=== PATIENT | male | born 1960 | race American Indian/Alaskan Native ===

== ENCOUNTER 2019-07-02 10:19 | Inpatient (IN) | payer OTHER ==
[2019-07-02] MEDS ORDERED: DEXTROSE 50% IN WATER (25GM) 50 ML SYRINGE IV ONE ×2 (10:25→10:49)
--- NOTE | 2019-07-02 10:38 | Emergency Department Report ---
ED Neuro Deficit HPI - General Chief Complaint: Neuro Symptoms/Deficit Stated Complaint: WEAKNESS Time Seen by Provider: 07/02/19 10:22 Source: patient, EMS Mode of arrival: Stretcher Limitations: No Limitations - History of Present Illness Initial Comments: 58-year-old man states that he called his girlfriend at 9:30 secondary to acute difficulty in walking. He felt as if his right side was weak and somewhat numb. He had no trouble with his speech or facial weakness. He denied any other neurological symptoms. Apparently for the last 3 days he has been fasting. He was found to have a glucose of 57 on Accu-Chek testing when he arrived in the em ergency department. I ordered blood work prior to giving him half an amp of D50. I am not certain as to the timing of his phlebotomy at this point however. It appears that it was delayed. Patient was also found to have a glucose of slightly over 60 by EMS staff. He was given "oral glucose". -: Gradual Location: right arm, left leg Presenting Symptoms: Present: Weak/Paralyzed One Side History of same: No Place: home Severity: mild Quality: weak, numb Improves With: time Worsens With: none On Anticoagulants: No Context: gradual onset Associated Symptoms: denies other symptoms Treatments Prior to Arrival: none - Related Data Allergies/Adverse Reactions: Allergies Allergy/AdvReac Type Severity Reaction Status Date / Time No Known Allergies Allergy Unverified 07/02/19 10:48 ED Review of Systems ROS: Stated complaint: WEAKNESS Other details as noted in HPI Constitutional: denies: chills, fever Eyes: denies: eye pain, eye discharge, vision change ENT: denies: ear pain, throat pain Respiratory: denies: cough, shortness of breath, wheezing Cardiovascular: denies: chest pain, palpitations Endocrine: no symptoms reported Gastrointestinal: denies: abdominal pain, nausea, diarrhea Genitourinary: denies: urgency, dysuria Musculoskeletal: denies: back pain, joint swelling, arthralgia Skin: denies: rash, lesions Neurological: as per HPI, weakness, numbness. denies: headache Psychiatric: denies: anxiety, depression Hematological/Lymphatic: denies: easy bleeding, easy bruising ED Past Medical Hx - Past Medical History Previous Medical History?: No Additional medical history: Not taking any medication. - Social History Smoking Status: Unknown if ever smoked Substance Use Type: None ED Neuro Physical Exam - General Limitations: No Limitations General appearance: alert, in no apparent distress Suspected Stroke: Yes (possible) - Head Head exam: Present: atraumatic, normocephalic - Eye Eye exam: Present: normal appearance, PERRL, EOMI. Absent: scleral icterus - ENT ENT exam: Present: mucous membranes moist - Neck Neck exam: Present: normal inspection. Absent: tenderness, meningismus - Respiratory Respiratory exam: Present: normal lung sounds bilaterally. Absent: respiratory distress - Cardiovascular Cardiovascular Exam: Present: regular rate, normal rhythm. Absent: systolic murmur, diastolic murmur, rubs, gallop - GI/Abdominal GI/Abdominal exam: Present: soft, normal bowel sounds. Absent: distended, tenderness, guarding, rebound - Rectal Rectal exam: Present: deferred - Extremities Exam Extremities exam: Present: normal inspection - Back Exam Back exam: Present: normal inspection - Neurological Exam Neurological exam: Present: alert, oriented X3, CN II-XII intact, motor sensory deficit - NIHSS Assessment Interval: Baseline 1a. Level of Consciousness: alert/keenly responsive 1b. LOC Questions: answers both correctly 1c. LOC Commands: performs tasks correctly 2. Best Gaze: normal 3. Visual: no visual loss 4. Facial Palsy: normal symmetrical movement 5b. Motor Arm Right: drift 5a. Motor Arm Left: no drift 6a. Motor Leg Left: no drift 6b. Motor Leg Right: drift 7. Limb Ataxia: absent 8. Sensory: mild/moderate sensory loss 9. Best Language: no aphasia 10. Dysarthria: normal 11. Extinction/Inattention: no abnormality Total Score: 3 Stroke Severity: Minor Stroke - Psychiatric Psychiatric exam: Present: normal affect, normal mood - Skin Skin exam: Present: warm, dry, intact, normal color. Absent: rash ED Course Vital Signs 07/02/19 10:59 Temperature 97.8 F Pulse Rate 70 Respiratory 17 Rate Blood Pressure 147/93 O2 Sat by Pulse 100 Oximetry - Reevaluation(s) Reevaluation #1: Patient's neurological symptoms improved apparently with oral glucose given by paramedics. Case discussed with tele-neurologist. He stated the patient was not a candidate for TPA due to an NIHSS of 1 applied for subjective sensory symptoms. On serial exam the patient's drift did resolve. He stated that he is now back to normal on reassessment. 07/02/19 12:12 Reevaluation #2: On reassessment the patient hasn't an NIHSS of 0. 07/02/19 12:21 - Lab Data Result diagrams: 07/02/19 10:37 07/02/19 10:37 Lab Results 07/02/19 07/02/19 07/02/19 Range/Units 10:33 10:37 10:37 RBC 4.53 (3.65-5.03) M/mm3 Hgb 15.0 (11.8-15.2) gm/dl Hct 43.5 (35.5-45.6) % MCV 96 H (84-94) fl MCH 33 H (28-32) pg MCHC 35 H (32-34) % RDW 14.6 (13.2-15.2) % PT (12.2-14.9) Sec. INR (0.87-1.13) APTT (24.2-36.6) Sec. Thrombin Time (15.1-19.6) Sec. POC Glucose 57 L (70-105) Total Bilirubin 0.90 (0.1-1.2) mg/dL Direct Bilirubin 0.2 (0-0.2) mg/dL Indirect Bilirubin 0.7 mg/dL AST 26 (5-40) units/L ALT 13 (7-56) units/L Alkaline Phosphatase 55 (35-129) units/L Total Creatine Kinase 190 H (55-170) units/L CK-MB (CK-2) 4.3 H (0.0-4.0) ng/mL CK-MB (CK-2) Rel Index 2.2 (0-4) Troponin T < 0.010 (0.00-0.029) ng/mL Total Protein 7.1 (6.3-8.2) g/dL Albumin 4.0 (3.9-5) g/dL Albumin/Globulin Ratio 1.3 % 07/02/19 07/02/19 07/02/19 Range/Units 10:48 11:18 11:59 RBC (3.65-5.03) M/mm3 Hgb (11.8-15.2) gm/dl Hct (35.5-45.6) % MCV (84-94) fl MCH (28-32) pg MCHC (32-34) % RDW (13.2-15.2) % PT 14.3 (12.2-14.9) Sec. INR 1.10 (0.87-1.13) APTT 28.1 (24.2-36.6) Sec. Thrombin Time 17.6 (15.1-19.6) Sec. POC Glucose 66 L 118 H (70-105) Total Bilirubin (0.1-1.2) mg/dL Direct Bilirubin (0-0.2) mg/dL Indirect Bilirubin mg/dL AST (5-40) units/L ALT (7-56) units/L Alkaline Phosphatase (35-129) units/L Total Creatine Kinase (55-170) units/L CK-MB (CK-2) (0.0-4.0) ng/mL CK-MB (CK-2) Rel Index (0-4) Troponin T (0.00-0.029) ng/mL Total Protein (6.3-8.2) g/dL Albumin (3.9-5) g/dL Albumin/Globulin Ratio % Laboratory Results - last 24 hr 07/02/19 07/02/19 07/02/19 10:33 10:37 10:37 RBC 4.53 Hgb 15.0 Hct 43.5 MCV 96 H MCH 33 H MCHC 35 H RDW 14.6 PT INR APTT Thrombin Time POC Glucose 57 L Total Bilirubin 0.90 Direct Bilirubin 0.2 Indirect Bilirubin 0.7 AST 26 ALT 13 Alkaline Phosphatase 55 Total Creatine Kinase 190 H CK-MB (CK-2) 4.3 H CK-MB (CK-2) Rel Index 2.2 Troponin T < 0.010 Total Protein 7.1 Albumin 4.0 Albumin/Globulin Ratio 1.3 07/02/19 07/02/19 07/02/19 10:48 11:18 11:59 RBC Hgb Hct MCV MCH MCHC RDW PT 14.3 INR 1.10 APTT 28.1 Thrombin Time 17.6 POC Glucose 66 L 118 H Total Bilirubin Direct Bilirubin Indirect Bilirubin AST ALT Alkaline Phosphatase Total Creatine Kinase CK-MB (CK-2) CK-MB (CK-2) Rel Index Troponin T Total Protein Albumin Albumin/Globulin Ratio - EKG Data -: EKG Interpreted by Me EKG shows normal: sinus rhythm, axis, intervals, ST-T waves Rate: normal Interpretation: LVH (with associated repolarization abnormality) - Radiology Data Radiology results: report reviewed, image reviewed CT the head and chest x-ray showed no acute process - Thrombolytic Inclusion/Exclusion Thrombolytic Contraindications: Rapidily Improving s/s (NIHSS equals 0) Critical care attestation.: If time is entered above; I have spent that time in minutes in the direct care of this critically ill patient, excluding procedure time. ED Disposition Clinical Impression: Right sided numbness, TIA (transient ischemic attack) Disposition: OP ADMIT IP TO THIS HOSP Is pt being admited?: Yes Does the pt Need Aspirin: Yes Condition: Stable Time of Disposition: 12:30
--- NOTE | 2019-07-02 10:46 | Emergency Department Report ---
ED Neuro Deficit HPI - General Chief Complaint: Neuro Symptoms/Deficit Stated Complaint: WEAKNESS Time Seen by Provider: 07/02/19 10:22 Source: patient, EMS Mode of arrival: Stretcher Limitations: No Limitations - History of Present Illness Initial Comments: [facility] Date of Service: 07/02/2019 10:29:28 Impression: RO Acute Ischemic Stroke Comments: acute right sided numbness/weakness - NIHSS 1 for sensory changes. Concerning for right parietal vs subcortical infarct vs due to hypoglycemia. Recommend admission for stroke workup. Mechanism of Stroke: Possible Thromboembolic Possible Cardioembolic Small Vessel Disease Metrics: Last Known Well: 07/02/2019 08:30:00 [facility] Notification Time: 07/02/2019 10:28:45 Arrival Time: 07/02/2019 10:19:00 Stamp Time: 07/02/2019 10:29:28 Time First Login Attempt: 07/02/2019 10:35:51 Video Start Time: 07/02/2019 10:35:51 Symptoms: right sided weakness NIHSS Start Assessment Time: 07/02/2019 10:39:07 Patient is not a candidate for tPA. Patient was not deemed candidate for tPA thrombolytics because of Resolved symptoms. Video End Time: 07/02/2019 10:45:06 CT head showed no acute hemorrhage or acute core infarct. CT head was reviewed. Presentation is not suggestive of Large Vessel Occlusive disease. Advanced imaging was not obtained as the presentation was not suggestive of Large Vessel Occlusive Disease. ED Physician notified of diagnostic impression and management plan on 07/02/2019 10:45:06 Our recommendations are outlined below. Recommendations: Activate Stroke Protocol Admission/Order Set Stroke/Telemetry Floor Neuro Checks Bedside Swallow Eval DVT Prophylaxis IV Fluids, Normal Saline Head of Bed Below 30 Degrees Euglycemia and Avoid Hyperthermia (PRN Acetaminophen) start ASA if CT head is neg for hemorrhage. Recommended Scan: MRI Head MRA Head and Neck Without Contrast When Available - Stroke Protocol Lipid Panel to Be Obtained, if Not Done in the Last Three Months Therapies: Physical Therapy, Occupational Therapy, Speech Therapy Assessment When Applicable Dysphaghia Screen: Swallow Evaluation, Bedside NPO Until Swallow Evaluation DVT prophylaxis: Lovenox or LMW Heparin Disposition: Follow up with Teleneurology Follow up Sign Out: Discussed with Emergency Department Provider History of Present Illness: Patient is a 58 year old Male. Patient was brought by EMS for symptoms of right sided weakness 58 yo man with acute right sided numbness/weakness noted when he woke up this am. He was LSN at approx 0830 when he got up to use the bathroom. He takes no blood thinners. He has not eaten in 2 days and BG was 57. CT head showed no acute hemorrhage or acute core infarct. CT head was reviewed. Examination: 1A: Level of Consciousness - Alert; keenly responsive + 0 1B: Ask Month and Age - Both Questions Right + 0 1C: Blink Eyes & Squeeze Hands - Performs Both Tasks + 0 2: Test Horizontal Extraocular Movements - Normal + 0 3: Test Visual Richter - No Visual Loss + 0 4: Test Facial Palsy (Use Grimace if Obtunded) - Normal symmetry + 0 5A: Test Left Arm Motor Drift - No Drift for 10 Seconds + 0 5B: Test Right Arm Motor Drift - No Drift for 10 Seconds + 0 6A: Test Left Leg Motor Drift - No Drift for 5 Seconds + 0 6B: Test Right Leg Motor Drift - No Drift for 5 Seconds + 0 7: Test Limb Ataxia (FNF/Heel-Hoang) - No Ataxia + 0 8: Test Sensation - Mild-Moderate Loss: Less Sharp/More Dull + 1 9: Test Language/Aphasia - Normal; No aphasia + 0 10: Test Dysarthria - Normal + 0 11: Test Extinction/Inattention - No abnormality + 0 NIHSS Score: 1 Patient was informed the Neurology Consult would happen via TeleHealth consult by way of interactive audio and video telecommunications and consented to receiving care in this manner. Due to the immediate potential for life-threatening deterioration due to underlying acute neurologic illness, I spent 35 minutes providing critical care. This time includes time for face to face visit via telemedicine, review of medical records, imaging studies and discussion of findings with providers, the patient and/or family. Dr Robert Khan [facility] Case [id number] ED Review of Systems ROS: Stated complaint: WEAKNESS Other details as noted in HPI ED Neuro Physical Exam - General Limitations: No Limitations Suspected Stroke: Yes - NIHSS Assessment Interval: Baseline 1a. Level of Consciousness: alert/keenly responsive 1b. LOC Questions: answers both correctly 1c. LOC Commands: performs tasks correctly 2. Best Gaze: normal 3. Visual: no visual loss 4. Facial Palsy: normal symmetrical movement 5b. Motor Arm Right: no drift 5a. Motor Arm Left: no drift 6a. Motor Leg Left: no drift 6b. Motor Leg Right: no drift 7. Limb Ataxia: absent 8. Sensory: mild/moderate sensory loss 9. Best Language: no aphasia 10. Dysarthria: normal 11. Extinction/Inattention: no abnormality Total Score: 1 Stroke Severity: Minor Stroke - Lab Data Lab Results 07/02/19 Range/Units 10:33 POC Glucose 57 L (70-105) Critical care attestation.: If time is entered above; I have spent that time in minutes in the direct care of this critically ill patient, excluding procedure time. ED Disposition Clinical Impression: Right sided numbness Disposition: [id number] OP ADMIT IP TO THIS HOSP Is pt being admited?: Yes Condition: Stable
--- NOTE | 2019-07-02 10:54 | Cat Scan Report ---
CT head/brain wo con INDICATION: Stroke symptoms. TECHNIQUE: Routine CT head without contrast. All CT scans at this location are performed using CT dos e reduction for ALARA by means of automated exposure control. COMPARISON: None. FINDINGS: BRAIN / INTRACRANIAL CONTENTS: No acute hemorrhage, mass effect, midline shift, or hydrocephalus. No appreciable acute large territorial or lacunar infarct. ORBITS: No significant abnormality of visualized orbits. SINUSES / MASTOIDS: No significant abnormality of visualized sinuses and mastoid air cells. ADDITIONAL FINDINGS: None. IMPRESSION: No acute intracranial abnormality. Signer Name: Bobby Aldana MD Signed: 07/02/2019 10:50 AM Workstation Name: [id number]
[2019-07-02 10:57] LABS: Hematocrit 43.5 % (35.5-45.6); Mean Corpuscular HGB Conc 35 % (32-34); Mean Corpuscular Volume 96 fl (84-94); Red Blood Count 4.53 M/mm3 (3.65-5.03); Red Cell Distribution Width 14.6 % (13.2-15.2)
[2019-07-02 11:18] LABS: Creatine Kinase MB 4.3 ng/mL (0.0-4.0)
[2019-07-02 11:19] LABS: Alanine Aminotransferase 13 units/L (7-56); Bilirubin,Direct 0.2 mg/dL (0-0.2)
--- NOTE | 2019-07-02 11:23 | XRay Report ---
CHEST 1 VIEW INDICATION / CLINICAL INFORMATION: htn. Hypertension. COMPARISON: None available. FINDINGS: SUPPORT DEVICES: None. HEART / MEDIASTINUM: No significant abnormality. LUNGS / PLEURA: No significant pulmonary or pleural abnormality. No pneumothorax. ADDITIONAL FINDINGS: No significant additional findings. IMPRESSION: 1. No acute findings. Signer Name: Robert Patel MD Signed: 07/02/2019 11:19 AM Workstation Name: [id number]
[2019-07-02 11:37] LABS: INR 1.1 (0.87-1.13)
[2019-07-02 11:38] LABS: Partial Thromboplastin Time 28.1 Sec. (24.2-36.6); Thrombin Time 17.6 Sec. (15.1-19.6)
[2019-07-02] MEDS ORDERED: ASPIRIN 325 MG TAB PO ONE ×2 (12:31→12:35)
[2019-07-02 12:36] LABS: BUN/Creatinine Ratio 20; Blood Urea Nitrogen 24 mg/dL (9-20); Calcium 9.3 mg/dL (8.4-10.2); Hemolysis Index 53
[2019-07-02] MEDS ORDERED: ASPIRIN 325 MG TAB ONE (13:06)
[2019-07-02 13:19] LABS: Basophils % (Manual) 0 % (0.0-1.8); Total Cells Counted 100
[2019-07-02 13:20] LABS: RBC Morphology Normal
[2019-07-02 13:21] LABS: Platelet Count 214 K/mm3 (140-440); Platelet Estimate Consistent w Auto
[2019-07-02 16:31] LABS: Bacteria,Urine 1+ /HPF (Negative); Bilirubin,Urine NEG (Negative); Blood,Urine SM (Negative); Color,Urine Yellow (Yellow); Mucus,Urine 1+ /HPF; Protein,Urine <15 mg/dL mg/dL (Negative); Urobilinogen,Urine < 2.0 mg/dL (<2.0)
[2019-07-02 16:37] LABS: Amphetamine Screen,Urine PRESUMPTIVE NEGATIVE; Benzodiazepines Screen,Urine PRESUMPTIVE NEGATIVE; Methadone Screen,Urine PRESUMPTIVE NEGATIVE; Opiate Screen,Urine PRESUMPTIVE NEGATIVE
--- NOTE | 2019-07-02 16:48 | History and Physical Report ---
History of Present Illness Date of examination: 07/02/19 Date of admission: 07/02/19 12:32 Chief complaint: Right sided weakness History of present illness: Patient is a 58-year-old man with a history of tobacco and alcohol dependency who presents to [facility] ED with acute onset of transient severe right arm and leg weakness that begun when he woke up this morning. His right arm was flaccid, he thought he has sleep on it and it was asleep. Then he got up to walk and leg gave away. His girlfriend called EMS at 9:30pm secondary to acute difficulty in walking. He felt as if his right side was weak and somewhat numb. He had no trouble with his speech or facial weakness. He denied any other neurological symptoms. Apparently for the last 3 days he has been fasting. He was found to have a glucose of 57 on Accu-Chek testing when he arrived in the emergency department. Patient's neurological symptoms improved apparently with oral glucose given by paramedics. Case discussed with tele-neurologist. He stated the patient was not a candidate for TPA due to an NIHSS of 1 applied for subjective sensory symptoms. On serial exam the patient's drift did resolve. H e stated that he is now back to normal on reassessment. 07/02/19 12:12 Reevaluation #2: NIHSS of 0. PMH: as hpi PSH: he denies SH: 1/3 ppd tob, 6pk beer/week, no illicit drugs FH: hypertension and DM ROS: Constitutional: denies: fever ENT: denies: throat or neck pain Respiratory: denies: cough, shortness of breath Cardiovascular: denies: chest pain Endocrine: denies unexplained weight loss or gain Gastrointestinal: denies: abdominal pain, nausea Genitourinary: denies: dysuria Rectal: denies no incontinence, no bleeding, no itching, no discharge Musculoskeletal: denies swelling, myaglia, +muscle weakness right hand Skin: denies: rash Neurological: denies: headache +right sided weakness Hematological/Lymphatic: denies: easy bleeding or easy bruising Allergic/Immunologic: no urticaria, no allergic rhinitis, no anaphylaxis Psych: denies sadness or hopelessness, SI/HI Medications and Allergies Allergies Allergy/AdvReac Type Severity Reaction Status Date / Time No Known Allergies Allergy Unverified 07/02/19 10:48 Exam - Physical Exam Narrative exam: Gen: WDWN, NAD, Awake, Alert, Orientated x 3 HEENT: NCAT, EOMI, PERRL, OP Clear Neck: supple, no adenopathy, no thyromegaly, no JVD CVS/Heart: RRR, normal S1S2, pulses present bilaterally Chest/Lungs: CTA B, Symmetrical chest expansion, good air entry bilaterally GI/Abdomen: soft, NTND, good bowel sounds, no guarding or rebound /Bladder: no suprapubic tenderness, no CVA or paraspinal tenderness Extermity/Skin: no c/c/e, no obvious rash MSK: FROM x 4 Neuro: CN 2-12 grossly intact, no new focal deficits Psych: calm - Constitutional Vitals: Temp Pulse Resp BP Pulse Ox 97.8 F 68 17 135/86 98 07/02/19 10:59 07/02/19 12:59 07/02/19 12:59 07/02/19 12:59 07/02/19 14:18 Results - Labs CBC & Chem 7: 07/02/19 10:37 07/02/19 10:37 Labs: Laboratory Last Values WBC 7.9 K/mm3 (4.5-11.0) 07/02/19 10:37 RBC 4.53 M/mm3 (3.65-5.03) 07/02/19 10:37 Hgb 15.0 gm/dl (11.8-15.2) 07/02/19 10:37 Hct 43.5 % (35.5-45.6) 07/02/19 10:37 MCV 96 fl (84-94) H 07/02/19 10:37 MCH 33 pg (28-32) H 07/02/19 10:37 MCHC 35 % (32-34) H 07/02/19 10:37 RDW 14.6 % (13.2-15.2) 07/02/19 10:37 Plt Count 214 K/mm3 (140-440) 07/02/19 10:37 Add Manual Diff Complete 07/02/19 10:37 Total Counted 100 07/02/19 10:37 Seg Neuts % (Manual) 61.0 % (40.0-70.0) 07/02/19 10:37 Band Neutrophils % 0 % 07/02/19 10:37 Lymphocytes % (Manual) 28.0 % (13.4-35.0) 07/02/19 10:37 Reactive Lymphs % (Man) 0 % 07/02/19 10:37 Monocytes % (Manual) 7.0 % (0.0-7.3) 07/02/19 10:37 Eosinophils % (Manual) 4.0 % (0.0-4.3) 07/02/19 10:37 Basophils % (Manual) 0 % (0.0-1.8) 07/02/19 10:37 Metamyelocytes % 0 % 07/02/19 10:37 Myelocytes % 0 % 07/02/19 10:37 Promyelocytes % 0 % 07/02/19 10:37 Blast Cells % 0 % 07/02/19 10:37 Nucleated RBC % Not Reportable 07/02/19 10:37 Seg Neutrophils # Man 0.0 K/mm3 (1.8-7.7) L 07/02/19 10:37 Band Neutrophils # 0.0 K/mm3 07/02/19 10:37 Lymphocytes # (Manual) 0.0 K/mm3 (1.2-5.4) L 07/02/19 10:37 Abs React Lymphs (Man) 0.0 K/mm3 07/02/19 10:37 Monocytes # (Manual) 0.0 K/mm3 (0.0-0.8) 07/02/19 10:37 Eosinophils # (Manual) 0.0 K/mm3 (0.0-0.4) 07/02/19 10:37 Basophils # (Manual) 0.0 K/mm3 (0.0-0.1) 07/02/19 10:37 Metamyelocytes # 0.0 K/mm3 07/02/19 10:37 Myelocytes # 0.0 K/mm3 07/02/19 10:37 Promyelocytes # 0.0 K/mm3 07/02/19 10:37 Blast Cells # 0.0 K/mm3 07/02/19 10:37 WBC Morphology Not Reportable 07/02/19 10:37 Hypersegmented Neuts Not Reportable 07/02/19 10:37 Hyposegmented Neuts Not Reportable 07/02/19 10:37 Hypogranular Neuts Not Reportable 07/02/19 10:37 Smudge Cells Not Reportable 07/02/19 10:37 Toxic Granulation Not Reportable 07/02/19 10:37 Toxic Vacuolation Not Reportable 07/02/19 10:37 Dohle Bodies Not Reportable 07/02/19 10:37 Pelger-Huet Anomaly Not Reportable 07/02/19 10:37 Shayan Rods Not Reportable 07/02/19 10:37 Platelet Estimate Consistent w auto 07/02/19 10:37 Clumped Platelets Not Reportable 07/02/19 10:37 Plt Clumps, EDTA Not Reportable 07/02/19 10:37 Large Platelets Not Reportable 07/02/19 10:37 Giant Platelets Not Reportable 07/02/19 10:37 Platelet Satelliting Not Reportable 07/02/19 10:37 Plt Morphology Comment Not Reportable 07/02/19 10:37 RBC Morphology Normal 07/02/19 10:37 Dimorphic RBCs Not Reportable 07/02/19 10:37 Polychromasia Not Reportable 07/02/19 10:37 Hypochromasia Not Reportable 07/02/19 10:37 Poikilocytosis Not Reportable 07/02/19 10:37 Anisocytosis Not Reportable 07/02/19 10:37 Microcytosis Not Reportable 07/02/19 10:37 Macrocytosis Not Reportable 07/02/19 10:37 Spherocytes Not Reportable 07/02/19 10:37 Pappenheimer Bodies Not Reportable 07/02/19 10:37 Sickle Cells Not Reportable 07/02/19 10:37 Target Cells Not Reportable 07/02/19 10:37 Tear Drop Cells Not Reportable 07/02/19 10:37 Ovalocytes Not Reportable 07/02/19 10:37 Helmet Cells Not Reportable 07/02/19 10:37 [place] Bodies Not Reportable 07/02/19 10:37 [place] Rings Not Reportable 07/02/19 10:37 Juan Cells Not Reportable 07/02/19 10:37 Bite Cells Not Reportable 07/02/19 10:37 Crenated Cell Not Reportable 07/02/19 10:37 Elliptocytes Not Reportable 07/02/19 10:37 Acanthocytes (Spur) Not Reportable 07/02/19 10:37 Rouleaux Not Reportable 07/02/19 10:37 Hemoglobin C Crystals Not Reportable 07/02/19 10:37 Schistocytes Not Reportable 07/02/19 10:37 Malaria parasites Not Reportable 07/02/19 10:37 Hao Bodies Not Reportable 07/02/19 10:37 Hem Pathologist Commnt No 07/02/19 10:37 PT 14.3 Sec. (12.2-14.9) 07/02/19 11:18 INR 1.10 (0.87-1.13) 07/02/19 11:18 APTT 28.1 Sec. (24.2-36.6) 07/02/19 11:18 Thrombin Time 17.6 Sec. (15.1-19.6) 07/02/19 11:18 Sodium 139 mmol/L (137-145) 07/02/19 10:37 Potassium 4.4 mmol/L (3.6-5.0) 07/02/19 10:37 Chloride 103.0 mmol/L (98-107) 07/02/19 10:37 Carbon Dioxide 17 mmol/L (22-30) L 07/02/19 10:37 Anion Gap 23 mmol/L 07/02/19 10:37 BUN 24 mg/dL (9-20) H 07/02/19 10:37 Creatinine 1.2 mg/dL (0.8-1.5) 07/02/19 10:37 Estimated GFR > 60 ml/min 07/02/19 10:37 BUN/Creatinine Ratio 20 % 07/02/19 10:37 Glucose 90 mg/dL (75-100) 07/02/19 10:37 POC Glucose 118 (70-105) H 07/02/19 11:59 Calcium 9.3 mg/dL (8.4-10.2) 07/02/19 10:37 Total Bilirubin 0.90 mg/dL (0.1-1.2) 07/02/19 10:37 Direct Bilirubin 0.2 mg/dL (0-0.2) 07/02/19 10:37 Indirect Bilirubin 0.7 mg/dL 07/02/19 10:37 AST 26 units/L (5-40) 07/02/19 10:37 ALT 13 units/L (7-56) 07/02/19 10:37 Alkaline Phosphatase 55 units/L (35-129) 07/02/19 10:37 Total Creatine Kinase 190 units/L (55-170) H 07/02/19 10:37 CK-MB (CK-2) 4.3 ng/mL (0.0-4.0) H 07/02/19 10:37 CK-MB (CK-2) Rel Index 2.2 (0-4) 07/02/19 10:37 Troponin T < 0.010 ng/mL (0.00-0.029) 07/02/19 10:37 Total Protein 7.1 g/dL (6.3-8.2) 07/02/19 10:37 Albumin 4.0 g/dL (3.9-5) 07/02/19 10:37 Albumin/Globulin Ratio 1.3 % 07/02/19 10:37 Urine Color Yellow (Yellow) 07/02/19 Unknown Urine Turbidity Clear (Clear) 07/02/19 Unknown Urine pH 5.0 (5.0-7.0) 07/02/19 Unknown Ur Specific Band[place] 1.024 (1.003-1.030) 07/02/19 Unknown Urine Protein <15 mg/dl mg/dL (Negative) 07/02/19 Unknown Urine Glucose (UA) 50 mg/dL (Negative) 07/02/19 Unknown Urine Ketones Tr mg/dL (Negative) 07/02/19 Unknown Urine Blood Sm (Negative) 07/02/19 Unknown Urine Nitrite Neg (Negative) 07/02/19 Unknown Urine Bilirubin Neg (Negative) 07/02/19 Unknown Urine Urobilinogen < 2.0 mg/dL (<2.0) 07/02/19 Unknown Ur Leukocyte Esterase Neg (Negative) 07/02/19 Unknown Urine WBC (Auto) 1.0 /HPF (0.0-6.0) 07/02/19 Unknown Urine RBC (Auto) 3.0 /HPF (0.0-6.0) 07/02/19 Unknown Urine Bacteria (Auto) 1+ /HPF (Negative) 07/02/19 Unknown Urine Mucus 1+ /HPF 07/02/19 Unknown Urine Opiates Screen Presumptive negative 07/02/19 Unknown Urine Methadone Screen Presumptive negative 07/02/19 Unknown Ur Barbiturates Screen Presumptive negative 07/02/19 Unknown Ur Phencyclidine Scrn Presumptive negative 07/02/19 Unknown Ur Amphetamines Screen Presumptive negative 07/02/19 Unknown U Benzodiazepines Scrn Presumptive negative 07/02/19 Unknown Assessment and Plan Assessment and plan: Patient is a 58-year-old man with a history of tobacco and alcohol dependency who presents to [facility] ED with acute onset of transient severe right arm and leg weakness that begun when he woke up this morning. His right arm was flaccid, he thought he has sleep on it and it was asleep. Then he got up to walk and leg gave away. His girlfriend called EMS at 9:30pm secondary to acute difficulty in walking. He felt as if his right side was weak and somewhat numb. He had no trouble with his speech or facial weakness. He denied any other neurological symptoms. Apparently for the last 3 days he has been fasting. He was found to have a glucose of 57 on Accu-Chek testing when he arrived in the emergency department. Patient's neurological symptoms improved apparently with oral glucose given by paramedics. Case discussed with tele-neurologist. He stated the patient was not a candidate for TPA due to an NIHSS of 1 applied for subjec tive sensory symptoms. On serial exam the patient's drift did resolve. He stated that he is now back to normal on reassessment. 07/02/19 12:12 Reevaluation #2: NIHSS of 0. * CT head: No acute findings * pCXR: no acute findings Right sided weakness with ambulatory dysfunction suspect TIA: obtain mri, consult PT, treat with asa/statin, use stoke protocol Hypoglycemia, not known to be DM, most likely related to Etoh and not eating food: accucheck q4hr, neurocheck q4hr Macrocytosis without anemia, etoh related: treat with B vitamin and folate Metabolic acidosis: treat with ivf, repeat bmp Tobacco dependency: treat with nicotine patch, prison classification counselor on stopping Alcholol dependency: prison classification counselor on stopping, use CIWA protocol, watch for withdrawals/confusion Dehydration: IVF DVT ppx: sq heparin full code
[2019-07-02 17:09] LABS: Cannabinoid Screen,Urine PRESUMPTIVE POSITIVE; Cocaine Screen,Urine PRESUMPTIVE POSITIVE
[2019-07-02] MEDS ORDERED: ACETAMINOPHEN 325 MG TAB PO PRN (17:42)
[2019-07-02] MEDS ORDERED: ONDANSETRON 4 MG/2 ML INJ IV PRN (17:42)
[2019-07-02] MEDS ORDERED: LORazepam 2 MG/ML VIAL IV PRN ×2 (17:44)
[2019-07-02] MEDS ORDERED: HALOPERIDOL LACTATE 5 MG/1 ML INJ IV PRN (17:44)
[2019-07-02] MEDS: NICOTINE 21 MG/24 HR PATCH TD SCH (18:03)
[2019-07-02] MEDS: FAMOTIDINE 10 MG TAB PO SCH (21:36)
[2019-07-03 04:47] LABS: Hematocrit 39.6 % (35.5-45.6); Hemoglobin 13.7 gm/dl (11.8-15.2); Mean Corpuscular HGB Conc 35 % (32-34); Mean Corpuscular Volume 97 fl (84-94); Platelet Count 235 K/mm3 (140-440); Red Blood Count 4.09 M/mm3 (3.65-5.03); Red Cell Distribution Width 14.3 % (13.2-15.2)
[2019-07-03 05:03] LABS: BUN/Creatinine Ratio 23; Blood Urea Nitrogen 27 mg/dL (9-20); Calcium 8.5 mg/dL (8.4-10.2); Chol/HDL Ratio 3.62 %; HDL Cholesterol 40 mg/dL (40-59); Hemolysis Index 8; LDL Cholesterol,Direct 91 mg/dL (50-130)
--- NOTE | 2019-07-03 11:04 | Vascular Lab Report ---
VL carotid duplex BILAT INDICATION / CLINICAL INFORMATION: stroke. COMPARISON: None available. FINDINGS: No significant plaque formation is demonstrated at either bifurcation. Velocity measurements and wave form analysis indicate less than 50% stenosis of each internal carotid artery, according to art march. Normal antegrade flow is demonstrated in both vertebral arteries. Incidentally noted is a solid but inhomogeneous and ill-defined nodule in the left thyroid, measuring over 3 cm in greatest diameter. IMPRESSION: 1. No significant stenosis. 2. Dominant left thyroid nodule. Consideration should be given to biopsy. Signer Name: Rafa Minor MD Signed: 07/03/2019 11:00 AM Workstation Name: [id number]
[2019-07-03] MEDS: FAMOTIDINE 10 MG TAB PO SCH ×2 (14:56→21:17)
[2019-07-03] MEDS: THIAMINE 100 MG TAB PO SCH (14:56)
[2019-07-03] MEDS: FOLIC ACID 1 MG TAB PO SCH (14:56)
[2019-07-03] MEDS: ASPIRIN 325 MG TAB PO SCH (14:56)
--- NOTE | 2019-07-03 14:56 | Magnetic Resonance Report ---
NONENHANCED MR SCAN OF THE BRAIN: INDICATION / CLINICAL INFORMATION: Weakness on the right arm and right leg TECHNIQUE: Multiplanar, multisequence MR images of the brain were noncontrast MRI brain normal brain MR obtained . COMPARISON: CT scan of the head from 07/02/2019 FINDINGS: BRAIN / INTRACRANIAL CONTENTS: Abnormal MRI scan; graft focal area of restrictive diffusion in the co rtex of the posterior left cingulate gyrus; this infarction is probably more than 8 hours old (increa sed FLAIR signal intensity) but less than 3 days old (low ADC values). No no evidence of hemorrhagic transformation seen in the gradient echo images. Brainstem is normal. 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 One of these lesions seen along the posterior limb of left in ternal capsule. Confluent patchy white matter hyperintensities seen above the atria of the lateral ve ntricles due to cerebral arteriosclerosis. CRANIOCERVICAL JUNCTION: No significant abnormality. VASCULAR FLOW-VOIDS: No significant abnormality. ORBITS: No significant abnormality of visualized orbits. SINUSES / MASTOIDS: No significant abnormality of visualized sinuses and mastoid air cells. ADDITIONAL FINDINGS: None. IMPRESSION: Focal subacute ischemia involving cortex of the posterior left cingulate gyrus Scattered the deep hemispheric white matter lesions due to microvascular faint angiopathy. Signer Name: Jennie Lebron MD Signed: 07/03/2019 2:52 PM Workstation Name: [id number]
[2019-07-03] MEDS: NICOTINE 21 MG/24 HR PATCH TD SCH (14:57)
--- NOTE | 2019-07-03 15:08 | Magnetic Resonance Report ---
MRA HEAD WITHOUT CONTRAST HISTORY: Stroke COMPARISON: None. TECHNIQUE: Routine MRA of the head is performed. 3-D/MIP reformats postprocessed. CONTRAST: None. FINDINGS: Intracranial vertebral arteries: No significant abnormality. Basilar artery: No significant abnormality. Posterior cerebral arteries: No significant abnormality. Intracranial internal carotid arteries: No significant abnormality. Anterior cerebral arteries: Left anterior cerebral artery supplies both A2 segments. Middle cerebral arteries: No significant abnormality. Variants and anomalies:None Additional findings: None. IMPRESSION: No significant abnormality. Signer Name: Jennie Lebron MD Signed: 07/03/2019 3:04 PM Workstation Name: [id number]
--- NOTE | 2019-07-03 15:41 | Progress Note ---
Assessment and Plan Assessment and plan: Patient is a 58-year-old man with a history of tobacco and alcohol dependency who presents to [facility] ED with acute onset of transient severe right arm and leg weakness that begun when he woke up this morning. His right arm was flaccid, he thought he has sleep on it and it was asleep. Then he got up to walk and leg gave away. His girlfriend called EMS at 9:30pm secondary to acute difficulty in walking. He felt as if his right side was weak and somewhat numb. He had no trouble with his speech or facial weakness. He denied any other neurological symptoms. Apparently for the last 3 days he has been fasting. He was found to have a glucose of 57 on Accu-Chek testing when he arrived in the emergency department. Patient's neurological symptoms improved apparently with oral glucose given by paramedics. Case discussed with tele-neurologist. He stated the patient was not a candidate for TPA due to an NIHSS of 1 applied for subjective sensory symptoms. On serial exam the patient's drift did resolve. He stated that he is now back to normal on reassessment. 07/02/19 12:12 Reevaluation #2: NIHSS of 0. * CT head: No acute findings * pCXR: no acute findings Acute CVA ruled in: consulted Neurology, treat with asa/statin, use stoke protocol Hypoglycemia, not known to be DM, most likely related to Etoh and not eating food: accucheck q4hr, neurocheck q4hr Macrocytosis without anemia, etoh related: treat with B vitamin and folate Metabolic acidosis: treat with ivf, repeat bmp Tobacco dependency: treat with nicotine patch, financial services counselor on stopping Alcholol dependency: financial services counselor on stopping, use CIWA protocol, watch for withdrawals/confusion Dehydration: IVF DVT ppx: sq heparin full code Disposition: continue inpatient for acute stroke, physicial therapy pending, ECHO still pending, consulted Neurology. History Interval history: Patient was seen and examined. Follow-up on current diagnosis CVA. Overnight uneventful as no events directly reported to me. Patient denies any chest pain, shortness breath, nausea/vomiting or severe headaches. Imaging, nursing note, chart, labs and old chart reviewed. Discussed with patient. Hospitalist Physical - Physical exam Narrative exam: Gen: WDWN, NAD, Awake, Alert, Orientated x 3 HEENT: NCAT, EOMI, PERRL, OP Clear Neck: supple, no adenopathy, no thyromegaly, no JVD CVS/Heart: RRR, normal S1S2, pulses present bilaterally Chest/Lungs: CTA B, Symmetrical chest expansion, good air entry bilaterally GI/Abdomen: soft, NTND, good bowel sounds, no guarding or rebound /Bladder: no suprapubic tenderness, no CVA or paraspinal tenderness Extermity/Skin: no c/c/e, no obvious rash MSK: FROM x 4 Neuro: CN 2-12 grossly intact, no new focal deficits Psych: calm - Constitutional Vitals: Temp Pulse Resp BP Pulse Ox 97.8 F 70 18 128/90 99 07/03/19 05:11 07/03/19 05:11 07/03/19 05:11 07/03/19 05:11 07/03/19 05:11 Results - Labs CBC & Chem 7: 07/03/19 04:05 07/03/19 04:05 Labs: Laboratory Last Values WBC 5.4 K/mm3 (4.5-11.0) 07/03/19 04:05 RBC 4.09 M/mm3 (3.65-5.03) 07/03/19 04:05 Hgb 13.7 gm/dl (11.8-15.2) 07/03/19 04:05 Hct 39.6 % (35.5-45.6) 07/03/19 04:05 MCV 97 fl (84-94) H 07/03/19 04:05 MCH 33 pg (28-32) H 07/03/19 04:05 MCHC 35 % (32-34) H 07/03/19 04:05 RDW 14.3 % (13.2-15.2) 07/03/19 04:05 Plt Count 235 K/mm3 (140-440) 07/03/19 04:05 Add Manual Diff Complete 07/02/19 10:37 Total Counted 100 07/02/19 10:37 Seg Neuts % (Manual) 61.0 % (40.0-70.0) 07/02/19 10:37 Band Neutrophils % 0 % 07/02/19 10:37 Lymphocytes % (Manual) 28.0 % (13.4-35.0) 07/02/19 10:37 Reactive Lymphs % (Man) 0 % 07/02/19 10:37 Monocytes % (Manual) 7.0 % (0.0-7.3) 07/02/19 10:37 Eosinophils % (Manual) 4.0 % (0.0-4.3) 07/02/19 10:37 Basophils % (Manual) 0 % (0.0-1.8) 07/02/19 10:37 Metamyelocytes % 0 % 07/02/19 10:37 Myelocytes % 0 % 07/02/19 10:37 Promyelocytes % 0 % 07/02/19 10:37 Blast Cells % 0 % 07/02/19 10:37 Nucleated RBC % Not Reportable 07/02/19 10:37 Seg Neutrophils # Man 0.0 K/mm3 (1.8-7.7) L 07/02/19 10:37 Band Neutrophils # 0.0 K/mm3 07/02/19 10:37 Lymphocytes # (Manual) 0.0 K/mm3 (1.2-5.4) L 07/02/19 10:37 Abs React Lymphs (Man) 0.0 K/mm3 07/02/19 10:37 Monocytes # (Manual) 0.0 K/mm3 (0.0-0.8) 07/02/19 10:37 Eosinophils # (Manual) 0.0 K/mm3 (0.0-0.4) 07/02/19 10:37 Basophils # (Manual) 0.0 K/mm3 (0.0-0.1) 07/02/19 10:37 Metamyelocytes # 0.0 K/mm3 07/02/19 10:37 Myelocytes # 0.0 K/mm3 07/02/19 10:37 Promyelocytes # 0.0 K/mm3 07/02/19 10:37 Blast Cells # 0.0 K/mm3 07/02/19 10:37 WBC Morphology Not Reportable 07/02/19 10:37 Hypersegmented Neuts Not Reportable 07/02/19 10:37 Hyposegmented Neuts Not Reportable 07/02/19 10:37 Hypogranular Neuts Not Reportable 07/02/19 10:37 Smudge Cells Not Reportable 07/02/19 10:37 Toxic Granulation Not Reportable 07/02/19 10:37 Toxic Vacuolation Not Reportable 07/02/19 10:37 Dohle Bodies Not Reportable 07/02/19 10:37 Pelger-Huet Anomaly Not Reportable 07/02/19 10:37 Shayan Rods Not Reportable 07/02/19 10:37 Platelet Estimate Consistent w auto 07/02/19 10:37 Clumped Platelets Not Reportable 07/02/19 10:37 Plt Clumps, EDTA Not Reportable 07/02/19 10:37 Large Platelets Not Reportable 07/02/19 10:37 Giant Platelets Not Reportable 07/02/19 10:37 Platelet Satelliting Not Reportable 07/02/19 10:37 Plt Morphology Comment Not Reportable 07/02/19 10:37 RBC Morphology Normal 07/02/19 10:37 Dimorphic RBCs Not Reportable 07/02/19 10:37 Polychromasia Not Reportable 07/02/19 10:37 Hypochromasia Not Reportable 07/02/19 10:37 Poikilocytosis Not Reportable 07/02/19 10:37 Anisocytosis Not Reportable 07/02/19 10:37 Microcytosis Not Reportable 07/02/19 10:37 Macrocytosis Not Reportable 07/02/19 10:37 Spherocytes Not Reportable 07/02/19 10:37 Pappenheimer Bodies Not Reportable 07/02/19 10:37 Sickle Cells Not Reportable 07/02/19 10:37 Target Cells Not Reportable 07/02/19 10:37 Tear Drop Cells Not Reportable 07/02/19 10:37 Ovalocytes Not Reportable 07/02/19 10:37 Helmet Cells Not Reportable 07/02/19 10:37 [place] Bodies Not Reportable 07/02/19 10:37 [place] Rings Not Reportable 07/02/19 10:37 Juan Cells Not Reportable 07/02/19 10:37 Bite Cells Not Reportable 07/02/19 10:37 Crenated Cell Not Reportable 07/02/19 10:37 Elliptocytes Not Reportable 07/02/19 10:37 Acanthocytes (Spur) Not Reportable 07/02/19 10:37 Rouleaux Not Reportable 07/02/19 10:37 Hemoglobin C Crystals Not Reportable 07/02/19 10:37 Schistocytes Not Reportable 07/02/19 10:37 Malaria parasites Not Reportable 07/02/19 10:37 Hao Bodies Not Reportable 07/02/19 10:37 Hem Pathologist Commnt No 07/02/19 10:37 PT 14.3 Sec. (12.2-14.9) 07/02/19 11:18 INR 1.10 (0.87-1.13) 07/02/19 11:18 APTT 28.1 Sec. (24.2-36.6) 07/02/19 11:18 Thrombin Time 17.6 Sec. (15.1-19.6) 07/02/19 11:18 Sodium 138 mmol/L (137-145) 07/03/19 04:05 Potassium 4.2 mmol/L (3.6-5.0) 07/03/19 04:05 Chloride 103.1 mmol/L (98-107) 07/03/19 04:05 Carbon Dioxide 22 mmol/L (22-30) 07/03/19 04:05 Anion Gap 17 mmol/L 07/03/19 04:05 BUN 27 mg/dL (9-20) H 07/03/19 04:05 Creatinine 1.2 mg/dL (0.8-1.5) 07/03/19 04:05 Estimated GFR > 60 ml/min 07/03/19 04:05 BUN/Creatinine Ratio 23 % 07/03/19 04:05 Glucose 105 mg/dL (75-100) H 07/03/19 04:05 POC Glucose 104 (70-105) 07/03/19 14:10 Calcium 8.5 mg/dL (8.4-10.2) 07/03/19 04:05 Total Bilirubin 0.90 mg/dL (0.1-1.2) 07/02/19 10:37 Direct Bilirubin 0.2 mg/dL (0-0.2) 07/02/19 10:37 Indirect Bilirubin 0.7 mg/dL 07/02/19 10:37 AST 26 units/L (5-40) 07/02/19 10:37 ALT 13 units/L (7-56) 07/02/19 10:37 Alkaline Phosphatase 55 units/L (35-129) 07/02/19 10:37 Total Creatine Kinase 190 units/L (55-170) H 07/02/19 10:37 CK-MB (CK-2) 4.3 ng/mL (0.0-4.0) H 07/02/19 10:37 CK-MB (CK-2) Rel Index 2.2 (0-4) 07/02/19 10:37 Troponin T < 0.010 ng/mL (0.00-0.029) 07/02/19 10:37 Total Protein 7.1 g/dL (6.3-8.2) 07/02/19 10:37 Albumin 4.0 g/dL (3.9-5) 07/02/19 10:37 Albumin/Globulin Ratio 1.3 % 07/02/19 10:37 Triglycerides 193 mg/dL (2-149) H 07/03/19 04:05 Cholesterol 145 mg/dL (50-199) 07/03/19 04:05 LDL Cholesterol Direct 91 mg/dL (50-130) 07/03/19 04:05 HDL Cholesterol 40 mg/dL (40-59) 07/03/19 04:05 Cholesterol/HDL Ratio 3.62 % 07/03/19 04:05 Urine Color Yellow (Yellow) 07/02/19 Unknown Urine Turbidity Clear (Clear) 07/02/19 Unknown Urine pH 5.0 (5.0-7.0) 07/02/19 Unknown Ur Specific [place] 1.024 (1.003-1.030) 07/02/19 Unknown Urine Protein <15 mg/dl mg/dL (Negative) 07/02/19 Unknown Urine Glucose (UA) 50 mg/dL (Negative) 07/02/19 Unknown Urine Ketones Tr mg/dL (Negative) 07/02/19 Unknown Urine Blood Sm (Negative) 07/02/19 Unknown Urine Nitrite Neg (Negative) 07/02/19 Unknown Urine Bilirubin Neg (Negative) 07/02/19 Unknown Urine Urobilinogen < 2.0 mg/dL (<2.0) 07/02/19 Unknown Ur Leukocyte Esterase Neg (Negative) 07/02/19 Unknown Urine WBC (Auto) 1.0 /HPF (0.0-6.0) 07/02/19 Unknown Urine RBC (Auto) 3.0 /HPF (0.0-6.0) 07/02/19 Unknown Urine Bacteria (Auto) 1+ /HPF (Negative) 07/02/19 Unknown Urine Mucus 1+ /HPF 07/02/19 Unknown Urine Opiates Screen Presumptive negative 07/02/19 Unknown Urine Methadone Screen Presumptive negative 07/02/19 Unknown Ur Barbiturates Screen Presumptive negative 07/02/19 Unknown Ur Phencyclidine Scrn Presumptive negative 07/02/19 Unknown Ur Amphetamines Screen Presumptive negative 07/02/19 Unknown U Benzodiazepines Scrn Presumptive negative 07/02/19 Unknown Urine Cocaine Screen Presumptive positive 07/02/19 Unknown U Marijuana (THC) Screen Presumptive positive 07/02/19 Unknown Drugs of Abuse Note Disclamer 07/02/19 Unknown Active Medications - Current Medications Current Medications: Generic Name Dose Route Start Last Admin Trade Name Freq PRN Reason Stop Dose Admin Acetaminophen 650 mg 07/02/19 17:42 Tylenol PO Q4H PRN Pain, Mild (1-3) Aspirin 325 mg 07/03/19 10:00 07/03/19 14:56 Aspirin PO 325 mg QDAY CLIFFORD Administration Atorvastatin Calcium 40 mg 07/02/19 22:00 07/02/19 21:36 Lipitor PO 40 mg QHS CLIFFORD Administration Famotidine 10 mg 07/02/19 22:00 07/03/19 14:56 Pepcid PO 10 mg BID CLIFFORD Administration Folic Acid 1 mg 07/03/19 10:00 07/03/19 14:56 Folvite PO 1 mg QDAY CLIFFORD Administration Haloperidol Lactate 5 mg 07/02/19 17:44 Haldol IV Q1H PRN Unrespon. to mult. doses BZD's Heparin Sodium (Porcine) 5,000 unit 07/03/19 22:00 Heparin SUB-Q Q12HR [facility] Lorazepam 2 mg 07/02/19 17:44 Ativan IV Q1H PRN CIWA-Ar 8-15 Lorazepam 4 mg 07/02/19 17:44 Ativan IV Q1H PRN CIWA-Ar 16-25 Nicotine 21 mg 07/02/19 18:00 07/03/19 14:57 Habitrol TD 21 mg QDAY CLIFFORD Administration Ondansetron HCl 4 mg 07/02/19 17:42 Zofran IV Q8H PRN Nausea And Vomiting Sodium Chloride 10 ml 07/02/19 17:42 Sodium Chloride Flush Syringe 10 Ml IV 07/05/19 23:59 PRN PRN LINE FLUSH Thiamine HCl 100 mg 07/03/19 10:00 07/03/19 14:56 Vitamin B-1 PO 100 mg QDAY CLIFFORD Administration
[2019-07-03] MEDS: HEPARIN 5,000 UNIT/1 ML VIAL SUB-Q SCH (21:17)
--- NOTE | 2019-07-04 07:42 | Discharge Summary ---
Providers - Providers Date of Admission: 07/02/19 12:32 Attending physician: JAUN GREEN MD 07/02/19 17:42 Consult to Dietitian/Nutrition [CONS] Routine Physician Instructions: Reason For Exam: Reason for Consult: Nutrition Recommendations Reason for Consult: Poor oral intake Occupational Therapy Evaluate and Treat [CONS] Routine Comment: Reason For Exam: Neuro deficits Physical Therapy Evaluation and Treat [CONS] Routine Comment: Reason For Exam: Neuro deficits 07/03/19 15:30 Consult to Physician [CONS] Routine Comment: Consulting Provider: CAESAR SHETH Physician Instructions: Reason For Exam: acute cva Primary care physician: WALL [employer]OVERING INSTALLER Hospitalization Condition: Stable Pertinent studies: MRI brain Focal subacute ischemia involving cortex of the posterior left cingulate gyrus Scattered the deep hemispheric white matter lesions due to microvascular faint angiopathy. MRA head; No significant abnormality. carotid doppler; 1. No significant stenosis. 2. Dominant left thyroid nodule. Consideration should be given to biopsy. echo; ef 40%, bubble study not done Hospital course: 58-year-old man with a history of tobacco and alcohol dependency who presents to [facility] ED with acute onset of transient severe right arm and leg weakness that begun when he woke up this morning. His right arm was flaccid, he thought he has sleep on it and it was asleep. Then he got up to walk and leg gave away. His girlfriend called EMS at 9:30pm secondary to acute difficulty in walking. He felt as if his right side was weak and somewhat numb. He had no trouble with his speech or facial weakness. He denied any other neurological symptoms. Apparently for the last 3 days he has been fasting. He was found to have a glucose of 57 on Accu-Chek testing when he arrived in the emergency department. Patient's neurological symptoms improved apparently with oral glucose given by paramedics. Case discussed with tele-neurologist. He stated the patient was not a candidate for TPA due to an NIHSS of 1 applied for subjective sensory symptoms. On serial exam the patient's drift did resolve. He stated that he is now back to normal on reassessment. 07/02/19 12:12 Reevaluation #2: NIHSS of 0. * CT head: No acute findings * pCXR: no acute findings Acute CVA ruled in: Medications optimized for secondary prevention, neurology input appreciated New onset systolic CHF, echo shows EF of 40%. Cardiology input appreciated, status post stress test which showed, Medications optimized for heart failure. Hypoglycemia was due to being n.p.o., now resolved. Macrocytosis without anemia, etoh related: treat with B vitamin and folate Etoh dependence and withdrawal/polysubstance abuse, including marijuana and cocaine - wa protocol, thiamine and folate -preventative health counseling performed for 17 minutes Metabolic acidosis: Was most likely due to dehydration, resolved with IV fluids Tobacco abuse/dependence Smoking cessation counseling performed for 10 minutes, nicotine patches when necessary Dehydration: IVF, resolved DVT ppx: sq heparin full code Disposition: DC-01 TO HOME OR SELFCARE Time spent for discharge: 35 minutes Core Measure Documentation - Palliative Care Palliative Care/ Comfort Measures: Not Applicable - Core Measures Any of the following diagnoses?: heart failure, stroke - Heart Failure Discharge Requirements DEOVN/ARB for LVSD if EF <40%: Yes Beta michael at discharge: Yes - Stroke Discharge Requirements Statin for LDL = or >70 mg/dl on DC: Yes Anticoag for atrial fib/atrial flutter: Not Applicable Antithrombotic for ischemic stroke: Yes Exam - Physical Exam Narrative exam: General.: Appears well, no distress, nontoxic HEENT: Moist mucous membranes, extraocular muscles intact, no lymphadenopathy Neck: supple Cardiac: S1-S2 heard Lungs: clear to auscultation bilaterally Abdomen: soft , nontender, nondistended, bowel sounds positive Extremities: no edema clubbing or cyanosis Skin: no rash or lesions Neurologic: Mild right-sided weakness Psych: calm, and cooperative - Constitutional Vitals: Temp Pulse Resp BP Pulse Ox 98.6 F 56 L 16 138/88 100 07/04/19 04:35 07/04/19 04:34 07/04/19 04:34 07/04/19 04:34 07/04/19 04:34 Plan Follow up with: PRIMARY CAREMD [Primary Care Provider] - 7 Days Prescriptions: AtorvaSTATin [Lipitor] 40 mg PO QHS #90 tablet Folic Acid [Folvite] 1 mg PO QDAY #30 tablet Nicotine [Habitrol] 21 mg TD QDAY #30 patch Aspirin EC [Halfprin EC] 81 mg PO QDAY #90 tablet. Metoprolol Xl [Metoprolol SUCCINATE ER TAB] 25 mg PO QDAY #90 tablet Thiamine [Vitamin B-1] 100 mg PO QDAY #30 tablet lisinopriL [Zestril TAB] 10 mg PO QDAY #90 tablet
--- NOTE | 2019-07-04 10:16 | Consultation ---
History of Present Illness Consult date: 07/04/19 Reason for Consult: right side numbness and weakness History of present illness: Patient is a 58-year-old man with a history of tobacco and alcohol dependency who presents to [facility] ED with acute onset of transient severe right arm and leg weakness that begun when he woke up 2/2 morning. His right arm was flaccid, he thought he has sleep on it and it was asleep. Then he got up to walk and leg gave away. His girlfriend called EMS at 9:30pm secondary to acute difficulty in walking. He felt as if his right side was weak and somewhat numb. He had no trouble with his speech or facial weakness. He denied any other neurological symptoms. Apparently for the last 3 days he has been fasting. He was found to have a glucose of 57 on Accu-Chek testing when he arrived in the emergency department. Patient's neurological symptoms improved apparently with oral glucose given by paramedics. Case discussed with tele-neurologist. He stated the patient was not a candidate for TPA due to an NIHSS of 1 applied for subjective sensory symptoms. On serial exam the patient's drift did resolve. He stated that he is now back to normal on reassessment. 07/02/19 12:12 Reevaluation #2: NIHSS of 0. pt. is with hx of HTN,HLP and recreational drug abuse in addition to smoking and drinking ,he is poorly compliant with his medications in hospital CT brain is remarkable for small vesseles disease , MRI brain is remarkable for left singulte gyrus infarct subacute,MRA is unremarkable Echo showed EF# 40-45% with TRand MR and left vent. dysfunction LDL# 91 UDS showed positive for THC and cocaine Past History Past Medical History: hypertension, hyperlipidemia Social history: smoking, alcohol abuse, other (THC and cocaine abuse) Medications and Allergies Allergies Allergy/AdvReac Type Severity Reaction Status Date / Time No Known Allergies Allergy Unverified 07/02/19 10:48 Active Meds: Active Medications Acetaminophen (Tylenol) 650 mg PO Q4H PRN PRN Reason: Pain, Mild (1-3) Aspirin (Aspirin) 325 mg PO QDAY [facility] Last Admin: 07/03/19 14:56 Dose: 325 mg Documented by: Atorvastatin Calcium (Lipitor) 40 mg PO QHS [facility] Last Admin: 07/03/19 21:17 Dose: 40 mg Documented by: Famotidine (Pepcid) 10 mg PO BID [facility] Last Admin: 07/03/19 21:17 Dose: 10 mg Documented by: Folic Acid (Folvite) 1 mg PO QDAY [facility] Last Admin: 07/03/19 14:56 Dose: 1 mg Documented by: Haloperidol Lactate (Haldol) 5 mg IV Q1H PRN PRN Reason: Unrespon. to mult. doses BZD's Heparin Sodium (Porcine) (Heparin) 5,000 unit SUB-Q Q12HR [facility] Last Admin: 07/03/19 21:17 Dose: 5,000 unit Documented by: Lorazepam (Ativan) 2 mg IV Q1H PRN PRN Reason: CIWA-Ar 8-15 Lorazepam (Ativan) 4 mg IV Q1H PRN PRN Reason: CIWA-Ar 16-25 Nicotine (Habitrol) 21 mg TD QDAY [facility] Last Admin: 07/03/19 14:57 Dose: 21 mg Documented by: Ondansetron HCl (Zofran) 4 mg IV Q8H PRN PRN Reason: Nausea And Vomiting Sodium Chloride (Sodium Chloride Flush Syringe 10 Ml) 10 ml IV PRN PRN PRN Reason: LINE FLUSH Stop: 07/05/19 23:59 Thiamine HCl (Vitamin B-1) 100 mg PO QDAY [facility] Last Admin: 07/03/19 14:56 Dose: 100 mg Documented by: Review of Systems All systems: negative (as above) Physical Examination - Vital Signs Vital Signs: Vital Signs Temp Pulse Resp BP Pulse Ox 97.8 F 70 17 147/93 100 07/02/19 10:59 07/02/19 10:59 07/02/19 10:59 07/02/19 10:59 07/02/19 10:59 - Constitutional General appearance: comfortable - EENT EENT: Present: PERRL, mucous membranes moist - Respiratory Respiratory: Present: chest non-tender, lungs clear, normal breath sounds - Cardiovascular Cardiovascular: Present: regular rate, normal S1, normal S2 Extremities: Present: no peripheral edema bilatateraly, no clubbing, cyanosis, no inflammation, no ischemia or petechiae - Gastrointestinal Gastrointestinal: Present: normoactive bowel sounds - Integumentary Integumentary: Present: normal - Neurologic Cranial nerve examination: PERRL, EOMI, V1/V2/V3 grossly intact, face symmetric, tongue midline, intact shoulder shrug Speech examination: intact Sensorimotor examination: intact Detailed motor examination: grossly full strength in Reflex and gait examination: intact Reflexes: 1+: ankle, bicep, knee, tricep - Level of Consciousness 1a. Level of Consciousness: alert/keenly responsive - LOC Questions 1b. LOC Questions: answers both correctly - LOC Command 1c. LOC Commands: performs tasks correctly - Best Gaze 2. Best Gaze: normal - Visual 3. Visual: no visual loss - Facial Palsy 4. Facial Palsy: normal symmetrical movement - Motor Arm 5a. Motor Arm Left: no drift 5b. Motor Arm Right: no drift - Motor Leg 6a. Motor Leg Left: no drift 6b. Motor Leg Right: no drift - Limb Ataxia 7. Limb Ataxia: absent - Sensory 8. Sensory: normal - Best Language 9. Best Language: no aphasia - Dysarthria 10. Dysarthria: normal - Extinction and Inattention 11. Extinction/Inattention: no abnormality - Scoring Total Score: 0 Stroke Severity: No Stroke Symptoms Results - Laboratory Findings CBC and BMP: 07/03/19 04:05 07/03/19 04:05 Abnormal Lab Findings: Abnormal Labs 07/02/19 07/02/19 07/02/19 10:33 10:37 10:37 MCV 96 H MCH 33 H MCHC 35 H Seg Neutrophils # Man 0.0 L Lymphocytes # (Manual) 0.0 L Carbon Dioxide 17 L BUN 24 H Glucose POC Glucose 57 L Total Creatine Kinase 190 H CK-MB (CK-2) 4.3 H Triglycerides 07/02/19 07/02/19 07/03/19 10:48 11:59 04:05 MCV MCH MCHC Seg Neutrophils # Man Lymphocytes # (Manual) Carbon Dioxide BUN 27 H Glucose 105 H POC Glucose 66 L 118 H Total Creatine Kinase CK-MB (CK-2) Triglycerides 193 H 07/03/19 07/03/19 04:05 22:06 MCV 97 H MCH 33 H MCHC 35 H Seg Neutrophils # Man Lymphocytes # (Manual) Carbon Dioxide BUN Glucose POC Glucose 165 H Total Creatine Kinase CK-MB (CK-2) Triglycerides Assessment and Plan 1- This is 58 ys old male presented on 07/02 with right side numbness and weakness resolved by time in ER with NIH #1 for right sensory def, MRI brain is remarkable for left cingulate gyrus infarct subacute,he is today with NIH #0 2- Hx of HTN and HLP with poor compliance with medications 3- Hx of smoking and alcohol intake 4- Recreational drug abuse ,THC and Cocaine. PLAN 1- ASA 81 mg daily 2- Lipitor 40 mg daily 3- BP control 4- Stop alcohol,and smoking 5- Stop recreational drug 6- Follow up with PCP will sign off finding is D/W pt. and he was counselled about side effect of smoking/d rinking/recreational drug intake pt. instructed to comply with medications on discharge.
[2019-07-04] MEDS: FAMOTIDINE 10 MG TAB PO SCH ×2 (10:40→22:29)
[2019-07-04] MEDS: THIAMINE 100 MG TAB PO SCH (10:41)
[2019-07-04] MEDS: FOLIC ACID 1 MG TAB PO SCH (10:41)
[2019-07-04] MEDS: NICOTINE 21 MG/24 HR PATCH TD SCH (10:41)
[2019-07-04] MEDS: ASPIRIN 325 MG TAB PO SCH (10:41)
[2019-07-04] MEDS: HEPARIN 5,000 UNIT/1 ML VIAL SUB-Q SCH ×2 (10:42→22:29)
--- NOTE | 2019-07-04 13:12 | Consultation ---
History of Present Illness Consult date: 07/04/19 Requesting physician: JAUN GREEN Consult reason: congestive heart failure History of present illness: Pt is a 58 y.o. male with hx of CVA, HTN, HLD, alcohol use, tobacco use, and polysubstance abuse. He is previously unknown to our practice. He presented with acute transient right-sided numbness and weakness. Head CT was negative; however, brain MRI indicated a subacute infarct. He was determined to not be a candidate for TPA per Neurology. Cardiology was consulted for ?HF. Pt underwent echo, which showed EF 40-45%. He denies any prior cardiac issues. Upon exam, his neurological symptoms have improved. Pt denies CP and SOB. No edema. Troponin negative. ECG showed NSR with LVH. No acute findings on CXR. Also of note, carotid Doppler showed no significant stenosis. Past History Past Medical History: hypertension, hyperlipidemia, stroke Social history: smoking, alcohol abuse, other (Tox screen positive for cocaine and THC) Medications and Allergies Allergies Allergy/AdvReac Type Severity Reaction Status Date / Time No Known Allergies Allergy Unverified 07/02/19 10:48 Active Meds: Active Medications Acetaminophen (Tylenol) 650 mg PO Q4H PRN PRN Reason: Pain, Mild (1-3) Aspirin (Aspirin) 325 mg PO QDAY [facility] Last Admin: 07/04/19 10:41 Dose: 325 mg Documented by: Atorvastatin Calcium (Lipitor) 40 mg PO QHS [facility] Last Admin: 07/03/19 21:17 Dose: 40 mg Documented by: Famotidine (Pepcid) 10 mg PO BID [facility] Last Admin: 07/04/19 10:40 Dose: 10 mg Documented by: Folic Acid (Folvite) 1 mg PO QDAY [facility] Last Admin: 07/04/19 10:41 Dose: 1 mg Documented by: Haloperidol Lactate (Haldol) 5 mg IV Q1H PRN PRN Reason: Unrespon. to mult. doses BZD's Heparin Sodium (Porcine) (Heparin) 5,000 unit SUB-Q Q12HR [facility] Last Admin: 07/04/19 10:42 Dose: 5,000 unit Documented by: Lorazepam (Ativan) 2 mg IV Q1H PRN PRN Reason: CIWA-Ar 8-15 Lorazepam (Ativan) 4 mg IV Q1H PRN PRN Reason: CIWA-Ar 16-25 Nicotine (Habitrol) 21 mg TD QDAY [facility] Last Admin: 07/04/19 10:41 Dose: 21 mg Documented by: Ondansetron HCl (Zofran) 4 mg IV Q8H PRN PRN Reason: Nausea And Vomiting Sodium Chloride (Sodium Chloride Flush Syringe 10 Ml) 10 ml IV PRN PRN PRN Reason: LINE FLUSH Stop: 07/05/19 23:59 Thiamine HCl (Vitamin B-1) 100 mg PO QDAY [facility] Last Admin: 07/04/19 10:41 Dose: 100 mg Documented by: Review of Systems Constitutional: no weight loss, no weight gain, no fever, no chills, no sweats, no fatigue Ears, nose, mouth and throat: no ear pain, no ear discharge, no nose pain, no nasal congestion, no nasal discharge, no sore throat Cardiovascular: no chest pain, no orthopnea, no palpitations, no edema, no syncope, no shortness of breath Respiratory: no cough, no shortness of breath Gastrointestinal: no abdominal pain, no nausea, no vomiting, no diarrhea, no constipation Genitourinary Male: dysuria Rectal: pain Musculoskeletal: muscle weakness (Right side weakness) Integumentary: no rash, no redness, no wounds, no lesions Neurological: weakness Endocrine: no cold intolerance, no heat intolerance Hematologic/Lymphatic: no easy bruising, no easy bleeding Allergic/Immunologic: no urticaria Physical Examination Last Vital Signs Temp 98.4 F 07/04/19 11:29 Pulse 77 07/04/19 11:29 Resp 18 07/04/19 11:29 BP 139/99 07/04/19 11:29 Pulse Ox 98 07/04/19 11:29 General appearance: no acute distress HEENT: Positive: PERRL, Normocephaly, Mucus Membranes Moist Neck: Positive: neck supple, trachea midline. Negative: JVD/HJR Cardiac: Positive: Reg Rate and Rhythm, S1/S2 Lungs: Positive: clear to auscultation, No Wheeze, Rales, Rhonchi Neuro: Positive: Grossly Intact, Cranial Nerve 2-12 Intact, Coordination Normal, Sensory Function Intact. Negative: Motor Function Intact Abdomen: Positive: Soft, Active Bowel Sounds. Negative: Tender, Distended Male genitourinary: Positive: normal Skin: Negative: Rash, Suspicious Lesions, Wound, Bruising Musculoskeletal: No Fluid Collection, No Pain Extremities: Present: normal, upper extr. pulses, lower extr. pulses. Absent: edema Results 07/03/19 04:05 07/03/19 04:05 - Imaging and Cardiology Echo: report reviewed EKG: report reviewed, image reviewed - EKG Interpretation EKG: sinus rhythm EKG shows: sinus rhythm (LVH) EKG interpretations - Telemetry EKG Rhythm: Sinus Rhythm - EKG Sinus rhythms and dysrhythmias: sinus rhythm Chamber hypertrophy or enlargement: left ventricular hypertro Assessment and Plan Echo reviewed - EF 40-45%. No current clinical evidence of acutely decompensated HF, no cardiac complaints. Continue ASA and statin therapy. Initiate Toprol XL. Plan for stress test in AM to r/o ischemic CMP. NPO after midnight. The patient has been seen in conjunction with Dr. Angel, who agrees with the assessment and plan of care. - Patient Problems (1) CVA (cerebral vascular accident) Current Visit: Yes Status: Acute Plan to address problem: Subacute per MRI. (2) History of CVA (cerebrovascular accident) Current Visit: Yes Status: Chronic (3) Cardiomyopathy Current Visit: Yes Status: Chronic (4) Hypertension Current Visit: Yes Status: Chronic (5) Hyperlipidemia Current Visit: Yes Status: Chronic (6) Alcohol use Current Visit: Yes Status: Chronic (7) Cocaine use Current Visit: Yes Status: Chronic (8) Tobacco use Current Visit: Yes Status: Chronic
--- NOTE | 2019-07-04 14:43 | Progress Note ---
Assessment and Plan Assessment and plan: 58-year-old man with a history of tobacco and alcohol dependency who presents to [facility] ED with acute onset of transient severe right arm and leg weakness that begun when he woke up this morning. His right arm was flaccid, he thought he has sleep on it and it was asleep. Then he got up to walk and leg gave away. His girlfriend called EMS at 9:30pm secondary to acute difficulty in walking. He felt as if his right side was weak and somewhat numb. He had no trouble with his speech or facial weakness. He denied any other neurological symptoms. Apparently for the last 3 days he has been fasting. He was found to have a glucose of 57 on Accu-Chek testing when he arrived in the emergency department. Patient's neurological symptoms improved apparently with oral glucose given by paramedics. Case discussed with tele-neurologist. He stated the patient was not a candidate for TPA due to an NIHSS of 1 applied for subjective sensory symptoms. On serial exam the patient's drift did resolve. He stated that he is now back to normal on reassessment. 07/02/19 12:12 Reevaluation #2: NIHSS of 0. * CT head: No acute findings * pCXR: no acute findings Acute CVA ruled in: Medications optimized for secondary prevention, neurology input appreciated New onset systolic CHF, echo shows EF of 40%. Cardiology input appreciated, plan for stress test tomorrow. Hypoglycemia was due to being n.p.o., now resolved. Macrocytosis without anemia, etoh related: treat with B vitamin and folate Etoh dependence and withdrawal/polysubstance abuse, including marijuana and cocaine - [facility] protocol, thiamine and folate -preventative health counseling performed for 17 minutes Metabolic acidosis: Was most likely due to dehydration, resolved with IV fluids Tobacco abuse/dependence Smoking cessation counseling performed for 10 minutes, nicotine patches when necessary Dehydration: IVF, resolved DVT ppx: sq heparin full code Disposition: continue inpatient for acute stroke, physicial therapy pending, ECHO still pending, consulted Neurology. History Interval history: Right-sided weakness is improved Review of systems Constitutional: No fevers, no malaise, no joint pains CVS: No chest pain, no orthopnea, no pedal edema GI: No abdominal pain, no diarrhea, no vomiting, no constipation Respiratory: , no wheezing, no coughing Hospitalist Physical - Physical exam Narrative exam: General.: Appears well, no distress, nontoxic HEENT: Moist mucous membranes, extraocular muscles intact, no lymphadenopathy Neck: supple Cardiac: S1-S2 heard Lungs: clear to auscultation bilaterally Abdomen: soft , nontender, nondistended, bowel sounds positive Extremities: no edema clubbing or cyanosis Skin: no rash or lesions Neurologic: Mild right-sided weakness Psych: calm, and cooperative - Constitutional Vitals: Temp Pulse Resp BP Pulse Ox 98.4 F 77 18 139/99 98 07/04/19 11:29 07/04/19 11:29 07/04/19 11:29 07/04/19 11:29 07/04/19 11:29 General appearance: Present: no acute distress Results - Labs CBC & Chem 7: 07/03/19 04:05 07/03/19 04:05 Labs: Laboratory Last Values WBC 5.4 K/mm3 (4.5-11.0) 07/03/19 04:05 RBC 4.09 M/mm3 (3.65-5.03) 07/03/19 04:05 Hgb 13.7 gm/dl (11.8-15.2) 07/03/19 04:05 Hct 39.6 % (35.5-45.6) 07/03/19 04:05 MCV 97 fl (84-94) H 07/03/19 04:05 MCH 33 pg (28-32) H 07/03/19 04:05 MCHC 35 % (32-34) H 07/03/19 04:05 RDW 14.3 % (13.2-15.2) 07/03/19 04:05 Plt Count 235 K/mm3 (140-440) 07/03/19 04:05 Add Manual Diff Complete 07/02/19 10:37 Total Counted 100 07/02/19 10:37 Seg Neuts % (Manual) 61.0 % (40.0-70.0) 07/02/19 10:37 Band Neutrophils % 0 % 07/02/19 10:37 Lymphocytes % (Manual) 28.0 % (13.4-35.0) 07/02/19 10:37 Reactive Lymphs % (Man) 0 % 07/02/19 10:37 Monocytes % (Manual) 7.0 % (0.0-7.3) 07/02/19 10:37 Eosinophils % (Manual) 4.0 % (0.0-4.3) 07/02/19 10:37 Basophils % (Manual) 0 % (0.0-1.8) 07/02/19 10:37 Metamyelocytes % 0 % 07/02/19 10:37 Myelocytes % 0 % 07/02/19 10:37 Promyelocytes % 0 % 07/02/19 10:37 Blast Cells % 0 % 07/02/19 10:37 Nucleated RBC % Not Reportable 07/02/19 10:37 Seg Neutrophils # Man 0.0 K/mm3 (1.8-7.7) L 07/02/19 10:37 Band Neutrophils # 0.0 K/mm3 07/02/19 10:37 Lymphocytes # (Manual) 0.0 K/mm3 (1.2-5.4) L 07/02/19 10:37 Abs React Lymphs (Man) 0.0 K/mm3 07/02/19 10:37 Monocytes # (Manual) 0.0 K/mm3 (0.0-0.8) 07/02/19 10:37 Eosinophils # (Manual) 0.0 K/mm3 (0.0-0.4) 07/02/19 10:37 Basophils # (Manual) 0.0 K/mm3 (0.0-0.1) 07/02/19 10:37 Metamyelocytes # 0.0 K/mm3 07/02/19 10:37 Myelocytes # 0.0 K/mm3 07/02/19 10:37 Promyelocytes # 0.0 K/mm3 07/02/19 10:37 Blast Cells # 0.0 K/mm3 07/02/19 10:37 WBC Morphology Not Reportable 07/02/19 10:37 Hypersegmented Neuts Not Reportable 07/02/19 10:37 Hyposegmented Neuts Not Reportable 07/02/19 10:37 Hypogranular Neuts Not Reportable 07/02/19 10:37 Smudge Cells Not Reportable 07/02/19 10:37 Toxic Granulation Not Reportable 07/02/19 10:37 Toxic Vacuolation Not Reportable 07/02/19 10:37 Dohle Bodies Not Reportable 07/02/19 10:37 Pelger-Huet Anomaly Not Reportable 07/02/19 10:37 Shayan Rods Not Reportable 07/02/19 10:37 Platelet Estimate Consistent w auto 07/02/19 10:37 Clumped Platelets Not Reportable 07/02/19 10:37 Plt Clumps, EDTA Not Reportable 07/02/19 10:37 Large Platelets Not Reportable 07/02/19 10:37 Giant Platelets Not Reportable 07/02/19 10:37 Platelet Satelliting Not Reportable 07/02/19 10:37 Plt Morphology Comment Not Reportable 07/02/19 10:37 RBC Morphology Normal 07/02/19 10:37 Dimorphic RBCs Not Reportable 07/02/19 10:37 Polychromasia Not Reportable 07/02/19 10:37 Hypochromasia Not Reportable 07/02/19 10:37 Poikilocytosis Not Reportable 07/02/19 10:37 Anisocytosis Not Reportable 07/02/19 10:37 Microcytosis Not Reportable 07/02/19 10:37 Macrocytosis Not Reportable 07/02/19 10:37 Spherocytes Not Reportable 07/02/19 10:37 Pappenheimer Bodies Not Reportable 07/02/19 10:37 Sickle Cells Not Reportable 07/02/19 10:37 Target Cells Not Reportable 07/02/19 10:37 Tear Drop Cells Not Reportable 07/02/19 10:37 Ovalocytes Not Reportable 07/02/19 10:37 Helmet Cells Not Reportable 07/02/19 10:37 [place] Bodies Not Reportable 07/02/19 10:37 Bison Rings Not Reportable 07/02/19 10:37 Juan Cells Not Reportable 07/02/19 10:37 Bite Cells Not Reportable 07/02/19 10:37 Crenated Cell Not Reportable 07/02/19 10:37 Elliptocytes Not Reportable 07/02/19 10:37 Acanthocytes (Spur) Not Reportable 07/02/19 10:37 Rouleaux Not Reportable 07/02/19 10:37 Hemoglobin C Crystals Not Reportable 07/02/19 10:37 Schistocytes Not Reportable 07/02/19 10:37 Malaria parasites Not Reportable 07/02/19 10:37 Hao Bodies Not Reportable 07/02/19 10:37 Hem Pathologist Commnt No 07/02/19 10:37 PT 14.3 Sec. (12.2-14.9) 07/02/19 11:18 INR 1.10 (0.87-1.13) 07/02/19 11:18 APTT 28.1 Sec. (24.2-36.6) 07/02/19 11:18 Thrombin Time 17.6 Sec. (15.1-19.6) 07/02/19 11:18 Sodium 138 mmol/L (137-145) 07/03/19 04:05 Potassium 4.2 mmol/L (3.6-5.0) 07/03/19 04:05 Chloride 103.1 mmol/L (98-107) 07/03/19 04:05 Carbon Dioxide 22 mmol/L (22-30) 07/03/19 04:05 Anion Gap 17 mmol/L 07/03/19 04:05 BUN 27 mg/dL (9-20) H 07/03/19 04:05 Creatinine 1.2 mg/dL (0.8-1.5) 07/03/19 04:05 Estimated GFR > 60 ml/min 07/03/19 04:05 BUN/Creatinine Ratio 23 % 07/03/19 04:05 Glucose 105 mg/dL (75-100) H 07/03/19 04:05 POC Glucose 165 (70-105) H 07/03/19 22:06 Calcium 8.5 mg/dL (8.4-10.2) 07/03/19 04:05 Total Bilirubin 0.90 mg/dL (0.1-1.2) 07/02/19 10:37 Direct Bilirubin 0.2 mg/dL (0-0.2) 07/02/19 10:37 Indirect Bilirubin 0.7 mg/dL 07/02/19 10:37 AST 26 units/L (5-40) 07/02/19 10:37 ALT 13 units/L (7-56) 07/02/19 10:37 Alkaline Phosphatase 55 units/L (35-129) 07/02/19 10:37 Total Creatine Kinase 190 units/L (55-170) H 07/02/19 10:37 CK-MB (CK-2) 4.3 ng/mL (0.0-4.0) H 07/02/19 10:37 CK-MB (CK-2) Rel Index 2.2 (0-4) 07/02/19 10:37 Troponin T < 0.010 ng/mL (0.00-0.029) 07/02/19 10:37 Total Protein 7.1 g/dL (6.3-8.2) 07/02/19 10:37 Albumin 4.0 g/dL (3.9-5) 07/02/19 10:37 Albumin/Globulin Ratio 1.3 % 07/02/19 10:37 Triglycerides 193 mg/dL (2-149) H 07/03/19 04:05 Cholesterol 145 mg/dL (50-199) 07/03/19 04:05 LDL Cholesterol Direct 91 mg/dL (50-130) 07/03/19 04:05 HDL Cholesterol 40 mg/dL (40-59) 07/03/19 04:05 Cholesterol/HDL Ratio 3.62 % 07/03/19 04:05 Urine Color Yellow (Yellow) 07/02/19 Unknown Urine Turbidity Clear (Clear) 07/02/19 Unknown Urine pH 5.0 (5.0-7.0) 07/02/19 Unknown Ur Specific [place] 1.024 (1.003-1.030) 07/02/19 Unknown Urine Protein <15 mg/dl mg/dL (Negative) 07/02/19 Unknown Urine Glucose (UA) 50 mg/dL (Negative) 07/02/19 Unknown Urine Ketones Tr mg/dL (Negative) 07/02/19 Unknown Urine Blood Sm (Negative) 07/02/19 Unknown Urine Nitrite Neg (Negative) 07/02/19 Unknown Urine Bilirubin Neg (Negative) 07/02/19 Unknown Urine Urobilinogen < 2.0 mg/dL (<2.0) 07/02/19 Unknown Ur Leukocyte Esterase Neg (Negative) 07/02/19 Unknown Urine WBC (Auto) 1.0 /HPF (0.0-6.0) 07/02/19 Unknown Urine RBC (Auto) 3.0 /HPF (0.0-6.0) 07/02/19 Unknown Urine Bacteria (Auto) 1+ /HPF (Negative) 07/02/19 Unknown Urine Mucus 1+ /HPF 07/02/19 Unknown Urine Opiates Screen Presumptive negative 07/02/19 Unknown Urine Methadone Screen Presumptive negative 07/02/19 Unknown Ur Barbiturates Screen Presumptive negative 07/02/19 Unknown Ur Phencyclidine Scrn Presumptive negative 07/02/19 Unknown Ur Amphetamines Screen Presumptive negative 07/02/19 Unknown U Benzodiazepines Scrn Presumptive negative 07/02/19 Unknown Urine Cocaine Screen Presumptive positive 07/02/19 Unknown U Marijuana (THC) Screen Presumptive positive 07/02/19 Unknown Drugs of Abuse Note Disclamer 07/02/19 Unknown Active Medications - Current Medications Current Medications: Generic Name Dose Route Start Last Admin Trade Name Freq PRN Reason Stop Dose Admin Acetaminophen 650 mg 07/02/19 17:42 Tylenol PO Q4H PRN Pain, Mild (1-3) Aspirin 325 mg 07/03/19 10:00 07/04/19 10:41 Aspirin PO 325 mg QDAY [facility] Administration Atorvastatin Calcium 40 mg 07/02/19 22:00 07/03/19 21:17 Lipitor PO 40 mg QHS [facility]ORD Administration Famotidine 10 mg 07/02/19 22:00 07/04/19 10:40 Pepcid PO 10 mg BID [facility] Administration Folic Acid 1 mg 07/03/19 10:00 07/04/19 10:41 Folvite PO 1 mg QDAY LCIFF[facility] Administration Haloperidol Lactate 5 mg 07/02/19 17:44 Haldol IV Q1H PRN Unrespon. to mult. doses BZD's Heparin Sodium (Porcine) 5,000 unit 07/03/19 22:00 07/04/19 10:42 Heparin SUB-Q 5,000 unit Q12HR [facility] Administration Lorazepam 2 mg 07/02/19 17:44 Ativan IV Q1H PRN CIWA-Ar 8-15 Lorazepam 4 mg 07/02/19 17:44 Ativan IV Q1H PRN CIWA-Ar 16-25 Metoprolol Succinate 25 mg 07/05/19 10:00 Metoprolol Xl PO QDAY [facility]ORD Nicotine 21 mg 07/02/19 18:00 07/04/19 10:41 Habitrol TD 21 mg QDAY [facility] Administration Ondansetron HCl 4 mg 07/02/19 17:42 Zofran IV Q8H PRN Nausea And Vomiting Sodium Chloride 10 ml 07/02/19 17:42 Sodium Chloride Flush Syringe 10 Ml IV 07/05/19 23:59 PRN PRN LINE FLUSH Thiamine HCl 100 mg 07/03/19 10:00 07/04/19 10:41 Vitamin B-1 PO 100 mg QDAY [facility] Administration Nutrition/Malnutrition Assess - Dietary Evaluation Nutrition/Malnutrition Findings: Nutrition Notes Start: 07/03/19 15:44 Freq: Status: Active Protocol: Document 07/04/19 09:35 AP (Rec: 07/04/19 09:45 AP [id number]) Co-Sign 07/04/19 09:35 LP Nutrition Notes Initial or Follow up Assessment Current Diagnosis Stroke Other Pertinent Diagnosis ETOH/TOBACCO DEPENDENCE Current Diet CARDIAC Labs/Tests BUN 27 TG 193 Pertinent Medications Pepcid Height 5 ft 7 in Weight 77.9 kg [place] Body Weight (kg) 67.27 BMI 26.9 Intake Prior to Admission Fair Weight change and time frame 8% in 2 months Weight Status Overweight Subjective/Other Information F/U for poor oral intakes. Pt consumed 100% of bfast tray, asked for double portions. Pt states losing 10-15 pounds in 1-2 months. No wasting noted. Burn Absent Trauma Absent GI Symptoms None Current % PO Good (75-100%) Minimum of two criteria No physical signs of malnutrition Interpretation of Weight Loss (severe) >5% in 1 month #1 Nutrition Diagnosis No nutrition diagnosis at this time Is patient on ventilator? No Is Patient Ambulatory and/or Out of Bed Yes REE-([facility]-ambulatory/OOB) [ 2018.419 [id number]] Calculation Used for Recommendations [facility] Additional Notes PRO needs: 62-77g/day (0.8-1g/ kg) Fluid: 1ml/kcal or per MD Nutrition Intervention Change Diet Order: Continue current Goal #1 Pt meet >80% kcal/PRO needs via PO intakes Anticipated Discharge Needs: Cardiac diet Revisit per MD consult or patient Sign Off request: Additional Comments F/U for PO intakes, need for stroke diet ed
[2019-07-04] MEDS: METOPROLOL SUCCINATE XL 25 MG TAB PO SCH (19:19)
[2019-07-05] MEDS ORDERED: REGADENOSON 0.4 MG/5 ML INJ IV ONE (08:02)
--- NOTE | 2019-07-05 10:03 | Treadmill Report ---
LEXISCAN STRESS REPORT REASON FOR STUDY: Cardiomyopathy. STRESS TEST PROTOCOL: The patient received 0.4 mg of Lexiscan intravenously over 10 seconds. Tc-99m Tetrofosmin was subsequently injected. Baseline ECG:sinus bradycardia with left ventricular hypertrophy. Lexiscan ECG:no ischemic changes. No chest pain. No arrhythmias. IMPRESSION: Electrocardiographically negative stress test. Nuclear imaging report to follow. JOB# [id number] HEMANTH/EMIL PFEIFFER
[2019-07-05] MEDS: METOPROLOL SUCCINATE XL 25 MG TAB PO SCH ×2 (10:37→12:40)
[2019-07-05] MEDS: ASPIRIN 325 MG TAB PO SCH ×2 (10:37→12:39)
[2019-07-05] MEDS: NICOTINE 21 MG/24 HR PATCH TD SCH ×2 (10:37→12:41)
[2019-07-05] MEDS: FOLIC ACID 1 MG TAB PO SCH ×2 (10:37→12:40)
[2019-07-05] MEDS: HEPARIN 5,000 UNIT/1 ML VIAL SUB-Q SCH (10:37)
[2019-07-05] MEDS: FAMOTIDINE 10 MG TAB PO SCH ×2 (10:38→12:39)
[2019-07-05] MEDS: THIAMINE 100 MG TAB PO SCH ×2 (10:38→12:40)
--- NOTE | 2019-07-05 10:50 | Progress Note ---
Assessment and Plan Echo reviewed - EF 40-45%. No current clinical evidence of acutely decompensated HF, no cardiac complaints. Cont ASA, statin, toprol. S/p lexiscan MPI stress test this AM which was negative for ischemia, EF 43%. Currently stable cardiac status. Pt may discharge from cardiology standpoint. Recommend follow up in our office with Dr. Angel within 1-2 weeks of discharge ([phone]). The patient has been seen in conjunction with Dr. Angel who agrees with the assessment and plan of care. - Patient Problems (1) CVA (cerebral vascular accident) Current Visit: Yes Status: Acute Plan to address problem: Subacute per MRI. (2) History of CVA (cerebrovascular accident) Current Visit: Yes Status: Chronic (3) Cardiomyopathy Current Visit: Yes Status: Chronic (4) Hypertension Current Visit: Yes Status: Chronic (5) Hyperlipidemia Current Visit: Yes Status: Chronic (6) Alcohol use Current Visit: Yes Status: Chronic (7) Cocaine use Current Visit: Yes Status: Chronic (8) Tobacco use Current Visit: Yes Status: Chronic Subjective Date of service: 07/05/19 Principal diagnosis: cmp Interval history: pt for stress test. no current cardiac complaints. in SR on tele with SB HR 48 noted overnight. Objective Last Vital Signs Temp 97.5 F L 07/05/19 05:52 Pulse 57 L 07/05/19 05:52 Resp 19 07/05/19 05:52 BP 123/75 07/05/19 09:57 Pulse Ox 100 07/05/19 05:52 - Physical Examination General: No Apparent Distress HEENT: Positive: PERRL, Normocephaly, Mucus Membranes Moist Neck: Positive: neck supple, trachea midline. Negative: JVD/HJR Cardiac: Positive: Reg Rate and Rhythm, S1/S2 Lungs: Positive: Decreased Breath Sounds Neuro: Positive: Grossly Intact, Cranial Nerve 2-12 Intact, Coordination Normal, Sensory Function Intact. Negative: Motor Function Intact Abdomen: Positive: Soft, Active Bowel Sounds. Negative: Tender, Distended Skin: Negative: Rash, Suspicious Lesions, Wound, Bruising Musculoskeletal: No Fluid Collection, No Pain Extremities: Present: normal, upper extr. pulses, lower extr. pulses. Absent: edema - Imaging and Cardiology EKG: report reviewed, image reviewed Echo: report reviewed - EKG Sinus rhythms and dysrhythmias: sinus rhythm Chamber hypertrophy or enlargement: left ventricular hypertro
[2019-07-05 12:08] VITALS: BP 138/79
--- NOTE | 2019-07-05 12:13 | Treadmill Report ---
THALLIUM REPORT REASON FOR STUDY: Chest pain. IMAGING PROTOCOL: The patient received 10 mCi of technetium-99m Tetrofosmin for rest imaging, and 28 mCi of technetium-99m Tetrofosmin for stress imaging. Imaging for all procedures was completed 30-90 minutes following the initial injection of Technetium 99m Tetrofosmin. SPECT imaging in the 180 degree arc was performed in the right anterior oblique projection. Computerized reconstruction of the images was performed for analysis. NUCLEAR IMAGING RESULTS: Technically limited study due to soft tissue attenuation artifact. Normal left ventricular cavity size with no change from stress to rest. Distribution of radionuclide within the left ventricle revealed a medium to large area of photo-induction involving the inferior, inferoseptal and inferoapical region. The degree of photo-induction is moderate. Rest imaging does not show any significant improvement in this defect. Gated SPECT imaging revealed [id number] global left ventricular hypokinesis. The calculated left ventricular ejection fraction is 43%. IMPRESSION: Technically limited study. Medium to large fixed inferior, inferoseptal and inferoapical defect. [id number] global left ventricular hypokinesis. EF 43%. These findings suggest prior infarction in the right coronary artery territory. However, a cardiomyopathic process may also be present in this patient. No evidence of significant stress-induced ischemia. JOB# [id number] HEMANTH/EMIL PFEIFFER
[2019-07-05] MEDS: LISINOPRIL 10 MG TAB PO SCH ×2 (12:40→16:48)
== END 2019-07-05 15:40 | disposition home or self-care (01) | DRG 65 ==
LOC: ED 10:19 → 4A 12:32 → 3A 13:06
PROVIDERS: ADMIT Internal Medicine; ATTEND Internal Medicine
DX: I63.9 Cerebral infarction, unspecified (principal); E87.2 Acidosis; I42.9 Cardiomyopathy, unspecified; I50.20 Unspecified systolic (congestive) heart failure; F10.239 Alcohol dependence with withdrawal, unspecified; G83.21 Monoplegia of upper limb affecting right dominant side; G83.11 Monoplegia of lower limb affecting right dominant side; I11.0 Hypertensive heart disease with heart failure; F17.200 Nicotine dependence, unspecified, uncomplicated; E86.0 Dehydration; E16.2 Hypoglycemia, unspecified; E78.5 Hyperlipidemia, unspecified; D75.89 Other specified diseases of blood and blood-forming organs; F19.90 Other psychoactive substance use, unspecified, uncomplicated; F14.90 Cocaine use, unspecified, uncomplicated; F12.10 Cannabis abuse, uncomplicated; Y90.9 Presence of alcohol in blood, level not specified; Z71.6 Tobacco abuse counseling; Z71.41 Alcohol abuse counseling and surveillance of alcoholic; Z83.3 Family history of diabetes mellitus; Z82.49 Family history of ischemic heart disease and other diseases of the circulatory system
CPT/HCPCS: 36415; 70450; 70544; 70551; 71045; 78452; 80048; 80061; 80076; 80307; 81001; 82550; 82553; 82962; 83880; 84436; 84439; 84443; 84484; 85007; 85025; 85027; 85610; 85670; 85730; 93005; 93010; 93017; 93306; 93880; G0378; A9270-GY; A9502; J1644; J2785